=== PATIENT | female | born 1985 | race Caucasian/White ===

== ENCOUNTER 2017-11-30 17:55 | Inpatient (IN) | payer MEDICAID ==
[~2017-11-30] VITALS: Ht 168 cm; Wt 115.2 kg
[2017-11-30 18:55] VITALS: BP 140/81
[2017-11-30 19:15] LABS: BASOPHILS % (AUTO) 0.1 % (0.0-2.0); EOSINOPHILS % (AUTO) 0.3 % (1.0-6.0); HEMATOCRIT 36.2 % (36-46); HEMOGLOBIN 12.4 g/dL (12.0-16.0); LYMPHOCYTES # (AUTO) 1.5 K/uL (1.0-4.8); LYMPHOCYTES % (AUTO) 15.5 % (22.0-44.0); MEAN CORPUSCULAR HEMOGLOBIN 30.3 pg (26.0-34.0); MEAN CORPUSCULAR HGB CONC 34.3 G/dL (31.0-37.0); MEAN CORPUSCULAR VOLUME 89 fL (80-100); MONOCYTES # (AUTO) 0.5 K/uL (0.1-1.0); NEUTROPHILS # (AUTO) 7.6 K/uL (1.8-7.7); NEUTROPHILS % (AUTO) 79.1 % (40.0-70.0); PLATELET COUNT (AUTO)-OB 173 K/uL (150-450); RED BLOOD CELL COUNT(AUTO) 4.09 MIL/uL (4.00-5.20); RED CELL DISTRIBUTION WIDTH 13.7 % (11.5-14.5)
[2017-11-30 19:28] LABS: ANION GAP 14 mmol/L (8-16); CALCIUM, TOTAL 8.8 mg/dL (8.8-10.5); CARBON DIOXIDE 20 mmol/L (22-29); CHLORIDE 106 mmol/L (98-107); CREATININE 0.48 mg/dL (0.60-1.30); GLOMERULAR FILTR. RATE CALC > 60 mL/min (>60); GLUCOSE,RANDOM 79 mg/dL (70-110); POTASSIUM 3.7 mmol/L (3.5-5.1); SODIUM SERUM 140 mmol/L (136-145); UREA NITROGEN, BLOOD 11 mg/dL (7-18)
[2017-11-30 19:33] LABS: ALANINE AMINOTRANSFERASE 14 U/L (12-78); ALBUMIN 2.4 g/dL (3.4-5.0); ALKALINE PHOSPHATASE 92 U/L (46-116); ASPARTATE AMINOTRANSFERASE 18 U/L (15-37); BILIRUBIN,TOTAL 0.5 mg/dL (0.1-1.0); TOTAL PROTEIN, SERUM 6.2 g/dL (6.4-8.2); URIC ACID 3.5 mg/dL (2.6-7.2)
[2017-11-30] MEDS ORDERED: RINGERS SOLUTION,LACTATED 1,000 ML IV PRN (21:37)
[2017-11-30] MEDS ORDERED: CITRIC ACID/SODIUM CITRATE 30 ML SOLUTION UDCUP PO PRN (21:45)
[2017-11-30] MEDS ORDERED: OXYGEN THERAPY IH SCH (21:45)
[2017-11-30] MEDS ORDERED: FentaNYL CITRATE-PF 100 MCG/2 ML VIAL IVP PRN (21:45)
[2017-11-30] MEDS ORDERED: METOCLOPRAMIDE HCL 5 MG/ML 2 ML VIAL IVP PRN (21:45)
[2017-11-30] MEDS: RINGERS SOLUTION,LACTATED 1,000 ML IV SCH (21:58)
[2017-11-30] MEDS ORDERED: MISOPROSTOL 25 MCG TABLET VG SCH (22:00)
[2017-11-30] MEDS ORDERED: FOLIC ACID PO (22:23)
[2017-11-30] MEDS ORDERED: IRON TAB PO (22:23)
[2017-12-01] MEDS ORDERED: OXYTOCIN 30 UNITS/LACT RINGERS 500 ML IV PRN (02:30)
[2017-12-01] MEDS: RINGERS SOLUTION,LACTATED 1,000 ML IV SCH ×2 (03:20→09:26)
[2017-12-01] MEDS ORDERED: ROPIVACAINE HCL/PF 0.2% 100 ML ED ONE (08:46)
[2017-12-01] MEDS ORDERED: DiphenhydrAMINE HCL 50 MG/ML VIAL IVP PRN (09:45)
[2017-12-01] MEDS ORDERED: ROPIVACAINE HCL/PF 0.2% 100 ML ED PRN (09:45)
[2017-12-01] MEDS ORDERED: ONDANSETRON HCL 4 MG/2 ML VIAL IVP PRN (09:45)
[2017-12-01] MEDS ORDERED: BENZOCAINE 20%/MENTHOL 56 GM SPRAY CANISTER TP PRN (11:15)
[2017-12-01] MEDS ORDERED: ACETAMINOPHEN/CODEINE 300-30 MG TABLET PO PRN ×2 (11:15)
[2017-12-01] MEDS ORDERED: GLYCERIN/WITCH HAZEL LEAF 40 PADS JAR TP PRN (11:15)
[2017-12-01] MEDS: LANOLIN 7 GM OINTMENT TP PRN (12:24)
[2017-12-01] MEDS: IBUPROFEN 800 MG TABLET PO SCH ×2 (12:24→18:16)
[2017-12-01] MEDS: MAGNESIUM HYDROXIDE SUSPENSION 30 ML UDCUP PO SCH (21:16)
[2017-12-02] MEDS: LANOLIN 7 GM OINTMENT TP PRN (01:02)
[2017-12-02] MEDS: IBUPROFEN 800 MG TABLET PO SCH ×5 (01:02→23:39)
[2017-12-02] MEDS: MAGNESIUM HYDROXIDE SUSPENSION 30 ML UDCUP PO SCH ×2 (08:27→21:00)
[2017-12-02] MEDS ORDERED: IBUP-2070 PO (11:40)
[2017-12-02] MEDS ORDERED: PREN1TAB80 PO (11:42)
[2017-12-02] MEDS ORDERED: DSS100 PO (11:43)
[2017-12-03] MEDS: LANOLIN 7 GM OINTMENT TP PRN (02:56)
[2017-12-03] MEDS: IBUPROFEN 800 MG TABLET PO SCH (06:24)
== END 2017-12-03 13:20 | disposition home or self-care (01) | DRG 560 ==
LOC: OBSVTOIN 17:55 → 4S 17:55
PROVIDERS: ADMIT Obstetrics & Gynecology; ATTEND Obstetrics & Gynecology
PROC: 10E0XZZ Delivery of Products of Conception, External Approach (ICD-10-PCS; principal; 2017-12-01)
PROC: 0HQ9XZZ Repair Perineum Skin, External Approach (ICD-10-PCS; 2017-12-01)
PROC: 3E0R3BZ Introduction of Anesthetic Agent into Spinal Canal, Percutaneous Approach (ICD-10-PCS; 2017-12-01)
PROC: 00HU33Z Insertion of Infusion Device into Spinal Canal, Percutaneous Approach (ICD-10-PCS; 2017-12-01)
DX: O69.81X0 Labor and delivery complicated by cord around neck, without compression, not applicable or unspecified (principal); O70.0 First degree perineal laceration during delivery; Z37.0 Single live birth; Z3A.39 39 weeks gestation of pregnancy
CPT/HCPCS: 84550; 86850; 86900; 86901; J2590; J2795; J7120